=== PATIENT | female | born 2000 | race Caucasian/White ===

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

== ENCOUNTER 2025-08-27 17:21 | Outpatient (CLI) | payer MEDICAID, SELFPAY ==
[2025-08-27 17:36] LABS: Hematocrit 35.0 % (37.0-47.0); Hemoglobin 10.8 g/dL (12.0-15.0); Immature Granulocyte Percent A 0.1 % (0-0.5); Lymphocytes Absolute Auto 2.64 K/mm3 (0.9-3.2); Mean Corpuscular HGB Conc 30.9 g/dl (32-36); Mean Corpuscular Hemoglobin 22.4 pg (26-34); Mean Corpuscular Volume 72.5 fl (80-100); Nucleated Red Blood Cells Absolute Auto 0.000 K/mm3 (0.0-0.012); Nucleated Red Blood Cells Perc 0.0 % (0.0-0.2); Platelet Count Result 411 k/mm3 (150-375); Red Blood Count 4.83 M/mm3 (4.2-5.4); White Blood Count 7.6 K/mm3 (4.5-10.0)
[2025-08-27 17:50] LABS: Alanine Aminotransferase 16 U/L (6-35); Albumin Level 5.0 g/dL (3.5-5.1); Alkaline Phosphatase 66 U/L (38-126); Anion Gap 7 mmol/L (4-12); Aspartate Amino Transferase 31 U/L (14-36); Bilirubin,Total 1.6 mg/dL (0.2-1.3); Blood Urea Nitrogen 7 mg/dL (7-17); CRP < 0.5 mg/dL (<1.0); Calcium 9.6 mg/dL (8.4-10.2); Carbon Dioxide 27 mmol/L (22-30); Chloride 104 mmol/L (98-107); Estimated Glomerular Filt Rate > 60; Glucose 99 mg/dL (65-110); Potassium 4.0 mmol/L (3.4-5.0); Sodium 138 mmol/L (137-145); Total Protein 8.9 g/dL (6.3-8.2)
[2025-08-27 18:03] LABS: Hypochromasia 1+; Ovalocytes 1+; Schistocytes None Seen
== END 2025-08-27 17:22 | disposition home or self-care (01) ==
PROVIDERS: PCP Family Medicine; Visit Provider Family Medicine
DX: R10.9 Unspecified abdominal pain (principal); K92.1 Melena
CPT/HCPCS: 36415; 80053; 85025; 85652; 86140

== ENCOUNTER 2025-09-04 15:38 | Outpatient (CLI) | payer OTHER, SELFPAY ==
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
--- OUTSIDE RECORDS SUMMARY | 2025-09-04 20:43 | XMS_ITS | Clinical Summary ---
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 Gender Identity Not on file Sexual Orientation Not on file Last Filed Vital Signs Vital Sign Reading Time Taken Comments Blood Pressure 116/71 07/31/2022 10:30 PM CDT Pulse 63 07/31/2022 10:30 PM CDT Temperature 36.8 C (98.3 F) 07/31/2022 8:16 PM CDT Respiratory Rate 16 07/31/2022 10:30 PM CDT Oxygen Saturation 100% 07/31/2022 10:30 PM CDT Inhaled Oxygen Concentration - - Weight 55.3 kg (122 lb) 07/31/2022 8:16 PM CDT Height 165.1 cm (5' 5) 07/31/2022 8:16 PM CDT Body Mass Index 20.3 07/31/2022 8:16 PM CDT Plan of Treatment Health Maintenance Due Date Last Done Comments Cervical Cancer Screening Pap Smear (Age 21 to 29) Every 3 Years 2002 Cervical Cancer Screening 2002 Annual Physical 2005 Meningococcal B Vaccine (2 of 2 - Bexsero SCDM 2-dose series) 2018 01/10/2014 Hepatitis C 2020 DTaP, Tdap and Td Vaccines (7 - Td or Tdap) 01/01/2024 12/31/2013, 10/03/2007, 05/18/2004, Additional history exists COVID-19 Vaccine ( season) 2025 Influenza Adult (#1) 2025 Pneumococcal Vaccine: Pediatrics (0 to 5 Years) and At-Risk Patients (6 to 49 Years) Aged Out 07/05/2003, 04/30/2003, 02/04/2003 No longer eligible based on patient's age to complete this topic Hepatitis B Vaccines Completed 09/20/2003, 04/30/2003, 02/04/2003 HPV Vaccines Completed 06/01/2016, 11/25, 09/01/2015, Additional history exists Meningococcal Vaccine Completed 07/09/2020 Hepatitis A Vaccines Aged Out No long er eligible based on patient's age to complete this topic RSV Immunizations Under 20 Months Aged Out No longer eligible based on patient's age to complete this topic Insurance MEDICAID DEPT [place] [id number] Care Teams Merchandise Shopper Relationship Specialty Start Date End Date Tere Benavidez, TERMITE CONTROL SERVICER- [address] [phone] PCP - General NURSE PRACTITIONER 07/31/22
== END 2025-09-04 15:39 | disposition home or self-care (01) ==
PROVIDERS: PCP Family Medicine; Visit Provider Family Medicine
DX: R10.9 Unspecified abdominal pain (principal)
CPT/HCPCS: 74177; Q9967

== ENCOUNTER 2025-09-24 13:58 | Outpatient (CLI) | payer OTHER, SELFPAY ==
--- OUTSIDE RECORDS SUMMARY | 2025-09-24 14:17 | XMS_ITS | Clinical Summary ---
Author Organization [facility] Address [address] [place] [id number] Care Team Providers Care Machine Carton Marker Name Role Phone Tere Benavidez Rusty 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
[2025-09-24 14:26] LABS: Hematocrit 35.2 % (37.0-47.0); Hemoglobin 10.6 g/dL (12.0-15.0); Immature Granulocyte Percent A 0.2 % (0-0.5); Lymphocytes Absolute Auto 2.05 K/mm3 (0.9-3.2); Mean Corpuscular HGB Conc 30.1 g/dl (32-36); Mean Corpuscular Hemoglobin 22.3 pg (26-34); Mean Corpuscular Volume 73.9 fl (80-100); Nucleated Red Blood Cells Absolute Auto 0.000 K/mm3 (0.0-0.012); Nucleated Red Blood Cells Perc 0.0 % (0.0-0.2); Platelet Count Result 449 k/mm3 (150-375); Red Blood Count 4.76 M/mm3 (4.2-5.4); White Blood Count 6.1 K/mm3 (4.5-10.0)
[2025-09-24 14:40] LABS: Iron 34 ug/dL (37-170)
[2025-09-24 14:42] LABS: Microcytosis Occasional (NORMAL); Ovalocytes Occasional; Schistocytes None Seen
[2025-09-24 14:49] LABS: Percent Iron Saturation 7 % (20-50)
[2025-09-24 15:16] LABS: Ferritin 4.34 ng/mL (6.24-137)
== END 2025-09-24 13:59 | disposition home or self-care (01) ==
LOC: ANHLAB 14:00
PROVIDERS: PCP Family Medicine; Visit Provider Family Medicine
DX: D50.9 Iron deficiency anemia, unspecified (principal)
CPT/HCPCS: 36415; 82728; 83540; 83550; 85025